=== PATIENT | female | born 2000 | race Two or more races ===

== ENCOUNTER 2023-06-16 17:14 | Emergency (ER) | payer OTHER ==
[~2023-06-16] VITALS: Ht 160 cm; Wt 59.0 kg
[2023-06-16] MEDS ORDERED: GUAIFENESIN 200 MG/10 ML BLIST.PACK PO STA (21:45)
[2023-06-16] MEDS ORDERED: CEFTRIAXONE SODIUM 1,000 MG VIAL IM STA (21:47)
[2023-06-16] MEDS ORDERED: KETOROLAC TROMETHAMINE 30 MG VIAL IM STA (21:48)
== END 2023-06-16 22:18 | disposition home or self-care (01) ==
LOC: ER 17:15
DX: J06.9 Acute upper respiratory infection, unspecified (principal)